=== PATIENT | male | born 1980 | race Caucasian/White ===

== ENCOUNTER → 2017-07-03 | Outpatient (CLI) | payer MEDICAID ==
--- NOTE | 2017-07-04 07:58 | XCELERA REPORT ---
[address] [address] Lower Extremity Arterial Evaluation Name: KALEE WILKES Age: 37 yrs Gender: Male : 1980 Patient Status: Outpatient Patient Location: Study Date: 07/03/2017 11:16 AM Procedure: A color flow and duplex scan of the lower extremity arteries was performed bilaterally with velocity and waveform anaylsis. 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 0 % stenosis. Ankle Brachial index was not due to bandaging. Left Side Arterial Evaluation Normal velocity and triphasic waveforms noted from the Common Femoral artery to the infregeniculate vessels. 0 % stenosis. Ankle Brachial index was not due to bandaging. Interpretation Summary No hemodynamically significant lesions in the bilateral lower extremities, on duplex imaging, at rest. : ROSANNE PAZ [place]
== END ==
LOC: SP 10:58
PROVIDERS: ATTEND Family Medicine
DX: L97.222 Non-pressure chronic ulcer of left calf with fat layer exposed (principal)
CPT/HCPCS: 93925

== ENCOUNTER 2017-07-25 07:03 | Day surgery (SDC) | payer MEDICAID ==
[2017-07-18 13:28] LABS: HEMATOCRIT 36.3 % (37.9-51.0); HEMOGLOBIN 12.1 g/dL (13.5-17.0); MEAN CORPUSCULAR HEMOGLOBIN 27.1 pg (27.0-33.4); MEAN CORPUSCULAR HGB CONC 33.4 g/dL (32.0-36.0); MEAN CORPUSCULAR VOLUME 81 fl (80-97); PLATELET COUNT 307 10^3/uL (150-450); RED BLOOD COUNT 4.47 10^6/uL (4.35-5.55); RED CELL DISTRIBUTION WIDTH 15.6 % (11.5-14.0); WHITE BLOOD COUNT 5.4 10^3/uL (4.0-10.5)
[~2017-07-25 07:03] MED LIST: BUPIVACAINE HCL 0.5%-EPI 1:200000 INJ/PF 30 ML VIAL ONE; BUPIVACAINE INJ/PF LIPOSOME/PF 266 MG/20 ML SDV ONE; LACTATED RINGERS 1000 ML IV PRN; LIDOCAINE 0.5% INJ-PF (5 MG/ML) 50 ML SDV SUBCUT PRN; METRONIDAZOLE 500 MG/NS RTU 100 ML IV PRN
[2017-07-25] MEDS ORDERED: TETRACAINE HCL/PF 20MG/2ML AMPULE (SPINAL) ONE (08:42)
[2017-07-25] MEDS ORDERED: MIDAZOLAM 2 MG/2 ML INJ ONE (08:44)
[2017-07-25] MEDS ORDERED: FENTANYL CITRATE INJ/PF 100 MCG/2 ML AMPUL ONE (08:44)
[2017-07-25] MEDS ORDERED: DEXAMETHASONE SOD PHOSPHATE INJ 4 MG/1 ML VIAL ONE (08:44)
[2017-07-25] MEDS ORDERED: ONDANSETRON HCL INJ/PF 4 MG/2 ML SDV ONE (08:44)
[2017-07-25] MEDS ORDERED: ACETAMINOPHEN 100 ML IV ONE (08:45)
[2017-07-25] MEDS ORDERED: PROPOFOL INJ 200 MG/20 ML VIAL IV ONE (08:45)
[2017-07-25] MEDS ORDERED: MEPERIDINE HCL/PF INJ 25 MG/1 ML DISP.SYRIN IV PRN (09:29)
[2017-07-25] MEDS ORDERED: OXYCODONE-ACETAMINOPHEN 5-325 MG TABLET PO PRN ×3 (09:29→11:01)
[2017-07-25] MEDS ORDERED: PROMETHAZINE HCL INJ 25 MG/1 ML VIAL IV PRN ×2 (09:29)
[2017-07-25] MEDS ORDERED: ONDANSETRON HCL INJ/PF 4 MG/2 ML SDV IV PRN (09:29)
[2017-07-25] MEDS ORDERED: FENTANYL CITRATE INJ/PF 100 MCG/2 ML AMPUL IV PRN ×3 (09:29)
[2017-07-25] MEDS ORDERED: MORPHINE SULFATE 10 MG/ML INJ IV PRN (09:29)
[2017-07-25] MEDS ORDERED: DIPHENHYDRAMINE HCL 50 MG/ML VIAL IV PRN (09:29)
[2017-07-25] MEDS ORDERED: HYDRALAZINE HCL INJ/PF 20 MG/1 ML SDV ONE (09:55)
--- NOTE | 2017-07-25 10:54 | Discharge Summary ---
Discharge Summary (SDC) - Discharge Final Diagnosis: Hemorrhoids Date of Surgery: 07/25/17 Discharge Date: 07/25/17 Condition: Stable Treatment or Instructions: [facility] [address] [place] [id number] Hemorrhoid or Anal Surgery Discharge Instructions 1. General Information: a. DO NOT DRIVE a car or operate dangerous machinery for 4-7 days or while taking narcotic prescription pain pills. b. DO NOT consume alcohol, tranquilizers, sleeping medications or any non- prescribed medications for 24 hours unless approved by your doctor or as long as taking narcotic prescription medications. c. DO NOT make important decisions or sign any important papers for the next 24 hours. d. Have a responsible person with you tonight. 2. Activity Restrictions: 2 weeks. a. Avoid heavy lifting or straining until you feel more comfortable. b. It is fine to go for walks, up and down steps, ride in a car. 3. Treatment: a. Tomorrow morning begin warm water sitz baths (soaks) with plain water. You may do 3-4 times per day or after bowel movements to help relieve spasm and pain. Place a dry gauze or panty liner over the sight to catch drainage and blood to help keep your clothing dry. b. You may use Tucks or other medicated wipes to help clean the area as needed. c. If packing used it will pass spontaneously with bowel function. External dressings and medicated gauze should be removed before sitz baths. 4. Medications: a. You may take the prescription tablets for pain one tablet every 6 hours. ( Toradol_). c. Resume all normal medications unless a change is specified by your doctors. d. Stool softeners are encouraged to help you for 2-4 weeks to maintain a soft stool and avoid more painful bowel movements due to pain medication. Colace is often used. f. Constipation is very common after anal surgery and you may take over-the- counter medications to help stimulate the bowel such as Milk of Magnesia, Senokot tablets, prune juice and drink plenty of water. 5. Diet: a. Begin with clear liquids and if you do well you may then advance to normal foods low in fat and protein at first. Smaller portion size may be conde the first night. b. Acidic (orange juice, tomato), foods high in ruffage (grapes, celery, asparagus) and spicy foods should be avoided for comfort the first 2-3 weeks since they can cause more burning sensation with bowel movements. 6..Follow Up Care: a. Please call the office to schedule a follow up appointment with your doctor for 2 weeks. In the event of any postoperative problems or questions or you may call the office during business hours or the On-Call physician evenings and weekends at [facility]. [facility] [phone] I understand the instructions for my postoperative care as described above and a copy has been given to me. Patient/Significant Other Witness Date Prescriptions: Ketorolac Tromethamine [Toradol 10 mg Tablet] 10 mg PO Q6HP PRN #20 tablet PRN Reason: Referrals: ROSANNE PAZ MD [Primary Care Provider] - Discharge Diet: Other (Comments) - In discharge instructions. Avoid spicy foods and food in high ruffage. Discharge Activity: No Lifting Over 10 Pounds, Walk Frequently Report the Following to Your Physician Immediately: Nausea, Vomiting, Increase in Pain, Fever over 101 Degrees, Drainage-Foul Smelling
--- NOTE | 2017-07-25 11:09 | Operative Report ---
Operative Report DATE OF SURGERY: 07/25/17 PREOPERATIVE DIAGNOSIS: 1. Morbid obesity. 2. Circumferential, massive internal and external hemorrhoids without thrombosis POSTOPERATIVE DIAGNOSIS: Same OPERATION: 1. Examination under spinal anesthesia. 2. Open, 3 compartment hemorrhoidectomy with mucosal and skin closure SURGEON: KARRIE HALL DOUBLE REAMER OPERATOR: PARUL ORTEGA ANESTHESIA: Spinal TISSUE REMOVED OR ALTERED: Multiple hemorrhoids including skin, plexus and fibrotic tissue admitted in 1 container COMPLICATIONS: None ESTIMATED BLOOD LOSS: 40 cc INTRAOPERATIVE FINDINGS: See below PROCEDURE: The patient was taken to the preop holding area to the main operating room where spinal anesthesia was produced by Dr. Mello. The patient was placed in the prone jackknife position buttocks clipped of hair, right widely and taped for optimal exposure. The buttocks and perineum anal crease and hemorrhoids were prepped and draped sterile fashion with Betadine. Surgical plan surgical timeout conducted. The findings were significant for massive internal/external hemorrhoids. The external hemorrhoids were the largest in the right lateral, left anterior and left posterior lateral positions. Hemorrhoids were so large they incorporated significant amounts of perianal skin in these 3 areas. In fact it was the redundant skin flaps that were of most concern to the patient. Throats the right lateral hemorrhoid first. The subcutaneous tissue and deep tissue was anesthetized with 1% lidocaine with epinephrine. A 4-0 chromic stitch was placed at the apex of the groin at approximately the dentate line although the exact anatomy in this side of the anal - rectal canal was somewhat distorted.. Hemorrhoid was excised with a #10 blade at the level of the mucosa. The underlying venous plexus was removed using a combination of sharp, blunt and LigaSure dissection. We also undermined the patient skin and mucosal flaps to remove some additional of the venous plexus. Hemostasis was acceptable. We took the level of dissection down to the external sphincter and preserved it. The mucosa and the skin defect was closed with a running 4-0 chromic suture in a locking fashion. The identical procedure was performed for the co- dominant anterior and left posterior hemorrhoids. All 3 hemorrhoids were closed in a similar fashion. All specimens were sent in one collection to pathology as hemorrhoids. At the conclusion of the operation, the reconstruction of the perianal tissue was felt to be satisfactory, and not too tight. The anal canal admitted a medium size retractor without resistance. Bleeding was negligible. Of Note we did not remove 100% of the hemorrhoidal venous tissue because of the complexity of this particular patient's anatomy, as well as the movement of the patient throughout the case. At this point we felt the operation was complete. We anesthetized the perianal tissue with full-strength 20 cc of Exparel, and a gel foam plug was placed in the anal canal. Patient tolerated the procedure well, was placed in supine position and taken to recovery room in stable condition. The physician bilingual administrative assistant, Ms. Cain, provided assistance during this case by: retracting tissue, instillation of local anesthesia and closure of skin incisions.
[2017-07-25] MEDS ORDERED: METOPROLOL TARTRATE PF/INJ 5 MG/5 ML SDV IV ONE (12:43)
[2017-07-25 15:07] VITALS: BP 137/77
== END 2017-07-25 14:45 | disposition home or self-care (01) ==
LOC: OROUT 07:03
PROVIDERS: ATTEND Surgery
PROC: 06BY0ZC Excision of Hemorrhoidal Plexus, Open Approach (ICD-10-PCS; principal; 2017-07-25 09:00)
DX: K64.4 Residual hemorrhoidal skin tags (principal); E66.01 Morbid (severe) obesity due to excess calories; M19.90 Unspecified osteoarthritis, unspecified site; Z87.891 Personal history of nicotine dependence; Z79.891 Long term (current) use of opiate analgesic; Z79.1 Long term (current) use of non-steroidal anti-inflammatories (NSAID); Z79.899 Other long term (current) drug therapy; Z68.43 Body mass index [BMI] 50.0-59.9, adult
CPT/HCPCS: 36415; 85027; 88304 ×2; 46250; J2250; J3490 ×3; J1100; J3010; J0360; J2405; J2704; J0131; C9290; 902